=== PATIENT | male | born 1940 | race Caucasian/White ===

== ENCOUNTER 2023-09-30 13:22 | Emergency (ER) | payer MEDICARE, SELFPAY ==
[2023-09-30 13:34] VITALS: BP 113/62; PULSE 96; RESP 20; TEMP 36.4; O2SAT 100
--- NOTE | 2023-09-30 13:46 | ED_ITS ---
HPI - Male Genitourinary General Chief complaint: Urogenital-Male Stated complaint: UTI History of Present Illness HPI Narrative: 83-year-old male with a history of prostate cancer reports for evaluation for hematuria x6 weeks. Patient states he has been evaluated at multiple hospitals including [facility] and [facility] within the past 6 weeks. He has been admitted on multiple occasions and seemed different radiologist. He states he has cystoscopy approximately 2 weeks ago that showed no masses in a ?normal bladder?. He was discontinued off of his Eliquis which he took for AFib secondary to the hematuria. He has not followed up outpatient with a urologist. He denies chest pain or shortness of breath, syncope, abdominal pain or flank pain. He has a Correa catheter in place which is draining clear fluid with red tinge, there is a blood clot present in the catheter. Related Data Allergies Allergy/AdvReac Type Severity Reaction Status Date / Time Penicillins Allergy Intermediate RASH Verified 01/16/22 16:23 Review of Systems Review of Systems: CONSTITUTIONAL: Denies fever, chills, or sweats. EYES: Denies visual changes, redness, or discharge. ENT: Denies rhinorrhea, congestion, sore throat, or otalgia. CARDIOVASCULAR: Denies chest pain, palpitations, or edema. RESPIRATORY: Denies cough or dyspnea. GASTROINTESTINAL: Denies abdominal pain, nausea, vomiting, or diarrhea. GENITOURINARY: See HPI SKIN: Denies rash or itching. MUSCULOSKELETAL: Denies back pain, joint pain, or myalgia. NEUROLOGIC: Denies headache, numbness, or weakness. PSYCHIATRIC: Denies anxiety or depression. Exam Narrative: GENERAL: Well-appearing, well-nourished, and in no acute distress. HEAD: Normocephalic, atraumatic. NECK: Supple. CHEST: Clear to auscultation. No respiratory distress. HEART: Regular rate and rhythm. No murmur heard. Normal peripheral pulses. ABDOMEN: Soft, nontender, nondistended, normal active bowel sounds. No CVA tenderness. Correa catheter in place draining clear urine with a rented. There is a large clot in the catheter. EXTREMITIES: Normal range of motion. No edema. SKIN: Warm, dry, no rash. NEURO: No focal deficits. Alert and oriented x3 Course Vital Signs Vital signs: Vital Signs Temperature 97.6 F 09/30/23 13:34 Pulse Rate 96 09/30/23 13:34 Respiratory Rate 20 09/30/23 13:34 Blood Pressure 113/62 09/30/23 13:34 Pulse Oximetry 100 09/30/23 13:34 Temperature 97.6 F 09/30/23 13:34 Pulse Rate 96 09/30/23 13:34 Respiratory Rate 20 09/30/23 13:34 Blood Pressure 113/62 09/30/23 13:34 Pulse Oximetry 100 09/30/23 13:34 MDM - Male Genitourinary MDM Narrative Medical decision making narrative: MSE by ANNETTE in triage Pt was evaluated by myself and eloped prior to lab/urine collection. Discharge Plan Discharge Clinical Impression: Hematuria Qualifiers: Hematuria type: unspecified type Qualified Code(s): R31.9 - Hematuria, unspecified Patient Disposition: Elopement After Seen by Prov Condition: Stable Follow-up/Referrals: UNKNOWN,DOCTOR [Primary Care Provider] -
--- NOTE | 2023-09-30 17:27 | PC.NURSE ---
pt walked out with family.
== END 2023-09-30 17:27 | disposition left against medical advice (07) ==
PROVIDERS: Emergency Provider Physician Assistant
DX: R31.9 Hematuria, unspecified (principal); I48.91 Unspecified atrial fibrillation; Z85.46 Personal history of malignant neoplasm of prostate
CPT/HCPCS: 99281